=== PATIENT | male | born 1940 | race Caucasian/White ===

== ENCOUNTER 2024-08-08 08:45 | Outpatient (RCR) | payer MEDICARE, SELFPAY ==
[2024-04-26] MEDS: HEPARIN 500 UNIT/5 ML SYRINGE IVF (15:04)
[2024-04-26] MEDS: SODIUM CHLORIDE 0.9 % (FLUSH) 10 ML SYRINGE IVF (15:04)
[2024-04-29] VITALS (8 sets, daily range): BP systolic 94–131; BP diastolic 62–77; PULSE 81–98; RESP 16; TEMP 36.3–37.2; O2SAT 96–99
[2024-04-29] MEDS: SODIUM CHLORIDE 0.9 % (FLUSH) 10 ML SYRINGE IVF (11:43)
[2024-04-29] MEDS: HEPARIN 500 UNIT/5 ML SYRINGE IVF (11:43)
--- NOTE | 2024-05-06 13:42 | ONC.NURNOTE ---
Dx: Anemia, Mesothelioma
[2024-08-08] MEDS: SODIUM CHLORIDE 0.9 % (FLUSH) 10 ML SYRINGE IVF ×2 (09:00→13:15)
[2024-08-08 10:29] VITALS: BP 97/61; PULSE 76; RESP 18; TEMP 36.5; O2SAT 99
[2024-08-08 10:48] VITALS: BP 115/72; PULSE 65; RESP 18; TEMP 36.5; O2SAT 99
[2024-08-08 11:20] VITALS: BP 110/70; PULSE 65; RESP 16; TEMP 36.3; O2SAT 99
[2024-08-08 11:52] VITALS: BP 104/64; PULSE 66; RESP 16; TEMP 36.3; O2SAT 96
[2024-08-08 12:16] VITALS: BP 120/77; PULSE 56; RESP 16; TEMP 36.2; O2SAT 99
[2024-08-08] MEDS: HEPARIN 500 UNIT/5 ML SYRINGE IVF (13:15)
[2024-08-08 13:17] VITALS: BP 118/72; PULSE 65; RESP 16; TEMP 36.6
[2024-09-20 07:56] VITALS: BP 118/76; PULSE 92; RESP 16; TEMP 36.1; O2SAT 97
[2024-09-20 09:28] VITALS: PULSE 58; RESP 18; TEMP 36.3; O2SAT 99
[2024-09-20 09:44] VITALS: BP 116/71; PULSE 58; RESP 18; TEMP 36.4; O2SAT 99
[2024-09-20 09:45] VITALS: BP 122/75; PULSE 60; RESP 18; TEMP 36.2; O2SAT 99
[2024-09-20 10:15] VITALS: BP 127/87; PULSE 60; RESP 18; TEMP 36.5; O2SAT 60
[2024-09-20 12:36] VITALS: BP 155/93; PULSE 64; RESP 18; TEMP 36.3; O2SAT 99
== END 2024-10-23 23:59 | disposition home or self-care (01) ==
LOC: CCIC 08:45
PROVIDERS: Visit Provider Clinical Nurse Specialist
DX: C45.0 Mesothelioma of pleura (principal); D64.9 Anemia, unspecified
CPT/HCPCS: 36415; 36430; 36591; 86850; 86900; 86901; 86922; J1642; P9016